=== PATIENT | male | born 1960 | race American Indian/Alaskan Native ===

== ENCOUNTER 2019-10-20 07:24 | Day surgery (SDC) | payer OTHER ==
[2019-10-20 08:03] VITALS: BP 163/94
[2019-10-20] MEDS ORDERED: LIDOCAINE (1%) 10 MG/1 ML VIAL 20 ML MDV ONE (08:27)
[2019-10-20] MEDS ORDERED: BUPIVACAINE/PF (0.5%) 5 MG/1 ML 30 ML VIAL INFILTRATI ONE ×2 (08:27→08:54)
[2019-10-20] MEDS ORDERED: LIDOCAINE (1%) 10 MG/1 ML VIAL 20 ML MDV INFILTRATI ONE (08:53)
--- NOTE | 2019-10-20 10:17 | Fluoroscopy Report ---
INTRAOPERATIVE FLUOROSCOPY: LEFT KNEE INDICATION: LT KNEE PAIN. TECHNIQUE: Intraoperative spot images were obtained during the procedure. FINDINGS: Limited spot fluoroscopy of the left knee was performed to guide a geniculate nerve block. Please see the procedure report for further details. Fluoroscopy Time: 16 seconds. Fluoroscopy Images: 6. Signer Name: Fabio Pittman MD Signed: 10/20/2019 10:13 AM Workstation Name: [id number]
--- NOTE | 2019-10-20 12:01 | Procedure Note ---
Date of procedure: 10/20/19 Pre-op diagnosis: Left knee pain Post-op diagnosis: same Procedure: Left Geniculate Nerve Block under C-arm fluroscopy procedure The patient taken to the Operating room where he was place on the table supine with padded triangular pad placed along the potileal fossa. The left knee prepped and draped in usual sterile fashion. 22-gauge spinal needle used to locate areas for injection, the medial and lateral supracondylar ridges, along with suprapatellar region as well as the medial border of the proximal tibia. These areas were anesthized using lidocaine 1% followed by placement of spinal needle near the medial, and lateral geniculate nerves. A mixture of marcaine and lidocaine injected into the deeper structures. There were no complications noted and he tolerated well. Anesthesia: local Surgeon: DAMION MARTINEZ Estimated blood loss: minimal Pathology: none Condition: stable Disposition: observation
== END 2019-10-20 09:12 | disposition home or self-care (01) ==
LOC: OR 07:24
PROVIDERS: ATTEND Orthopaedic Surgery
DX: M25.562 Pain in left knee (principal); G43.909 Migraine, unspecified, not intractable, without status migrainosus; E78.00 Pure hypercholesterolemia, unspecified; I10 Essential (primary) hypertension; J44.9 Chronic obstructive pulmonary disease, unspecified; G47.30 Sleep apnea, unspecified; K21.9 Gastro-esophageal reflux disease without esophagitis; Z85.46 Personal history of malignant neoplasm of prostate; Z85.89 Personal history of malignant neoplasm of other organs and systems; Z98.890 Other specified postprocedural states; Z79.899 Other long term (current) drug therapy; Z79.82 Long term (current) use of aspirin; Z87.891 Personal history of nicotine dependence; Z88.8 Allergy status to other drugs, medicaments and biological substances
CPT/HCPCS: 77002

== ENCOUNTER 2020-01-19 14:26 | Day surgery (SDC) | payer OTHER ==
--- NOTE | 2020-01-19 07:57 | Anesthesia Day of Surgery ---
Anesthesia Day of Surgery - Day of Surgery Patient Examined: Yes Patient H&P Reviewed: Yes Patient is NPO: Yes Beta Blockers: Yes (metoprolol this morning) Cardiac Clearance: Yes
--- NOTE | 2020-01-19 07:57 | Anesthesia Consultation ---
Anesthesia Consult and Med Hx Date of service: 01/19/20 - Airway Anesthetic Teeth Evaluation: Good (implants) ROM Head & Neck: Adequate Mental/Hyoid Distance: Adequate Mallampati Class: Class II Intubation Access Assessment: Probably Good - Pulmonary Exam CTA: Yes - Cardiac Exam Cardiac Exam: RRR - Pre-Operative Health Status ASA Pre-Surgery Classification: ASA3 Proposed Anesthetic Plan: General - Pulmonary Hx Smoking: Yes (quit 30yrs ago) Hx Respiratory Symptoms: No Hx Sleep Apnea: Yes (compliant with CPAP) - Cardiovascular System Hx Hypertension: Yes (took metoprolol this morning) Hx Heart Attack/AMI: No (recent CP w/ negative cardiac workup) Hx Percutaneous Transluminal Coronary Angioplasty (PTCA): No Hx Cardia Arrhythmia: No (hx abnormal EKG; follows with cardiology ) - Central Nervous System Hx Seizures: No (depakote for migraines; taken this morning) CVA: No Hx Back Pain: Yes - Gastrointestinal Hx Gastroesophageal Reflux Disease: Yes (well controlled) - Endocrine Hx Renal Disease: No Hx Liver Disease: No Hx Insulin Dependent Diabetes: No Hx Non-Insulin Dependent Diabetes: No Hx Thyroid Disease: No - Other Systems Hx Cancer: Yes (hx prostate ca) Hx Obesity: No - Additional Comments Anesthesia Medical History Comments: No hx anesthetic complications.
--- NOTE | 2020-01-19 13:23 | Procedure Note ---
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 A timeout procedure was done to identify the patient and the correct operative site next the leg was exsanguinated followed by inflation of the pneumatic tourniquet to 300 mmHg. Routine stab wounds were made both medial and lateral to the patella tendon next the arthroscope was inserted the knee joint was then insufflated with normal saline solution examination of the knee revealed these findings the patient was noted to have a grade II-III chondromalacia involving the medial femoral condyle and corresponding tibial plateau the medial meniscus was seen in its entirety there was some mild fraying noted in the posterior third the anterior cruciate ligament was seen and examined and was sensed intact next the lateral the arthroscope was placed into the lateral compartment here patient was noted to have again grade III chondromalacia a small flap tear noted in the lateral meniscus again the arthroscopic shaver was used to debride the degraded articular cartilage down to healthy-appearing cartilage tissue following this the wound was copiously irrigated the stab wounds were repaired 20 cc of half percent Marcaine was then injected into the knee followed by routine postop dressings patient tolerated the procedure there were no complications Anesthesia: CASSIE Surgeon: DAMION MARTINEZ Estimated blood loss: minimal Pathology: none Condition: stable Disposition: PACU
[2020-01-19 14:15] VITALS: BP 151/92
[~2020-01-19 14:26] MED LIST: ACETAMINOPHEN 500 MG TAB PO ONE; BUPIVACAINE-EPINEPHRINE/PF 0.25%-1:200,000 (30 ML) VIAL INFILTRATI ONE; BUPIVACAINE-EPINEPHRINE/PF 0.5%-1:200,000 (10 ML) VIAL IJ ONE; BUPIVACAINE-EPINEPHRINE/PF 0.5%-1:200,000 (30 ML) VIAL INFILTRATI ONE; EPINEPHrine 1 MG/10 ML SYRINGE IV ONE; EPINEPHrine 30 MG/30 ML INJ IV ONE; GLYCOPYRROLATE 0.4 MG/2 ML INJ ONE; HYDROmorphone 1 MG/1 ML INJ ONE; LACTATED RINGERS 1,000 ML IV SCH; LIDOCAINE MPF (2%) 20 MG/1 ML VIAL 5 ML ONE; MAGNESIUM OXIDE 400 MG TAB PO SCH; ONDANSETRON 4 MG/2 ML INJ ONE; PHENYLEPHRINE/NS 1,000 MCG/10 ML SYRINGE (OR USE) IV ONE; ROCURONIUM 50 MG/5 ML INJ IV ONE; SODIUM CHLORIDE 0.9% IRRIG SOLN 3000 ML IR ONE; ceFAZolin/STERILE WATER 2 GM/20 ML SYRINGE IV NR; ePHEDrine SULFATE 50 MG/1 ML INJ ONE; fentaNYL 100 MCG/2 ML INJ IV PRN; fentaNYL 100 MCG/2 ML INJ ONE; hydrALAZINE 20 MG/1 ML INJ IV ONE; hydrALAZINE 20 MG/1 ML INJ ONE; methylPREDNISolone ACETATE 40 MG/1 ML INJ ONE; propofoL 200 MG/20 ML VIAL IV ONE
--- NOTE | 2020-01-19 19:20 | Post Anesthesia Evaluation ---
- Post Anesthesia Evaluation Patient Participated: Yes Airway Patent: Yes Stable Respiratory Function: Yes Nausea/Vomiting: No Temp > 96.8F: Yes Pain Manageable: Yes Adequeate Hydration: Yes Anesthesia Complications: No
--- NOTE | 2020-02-06 16:30 | Event Note ---
Date: 02/06/20 (Post-op Tongue Numbness) Patient presented to [facility] today 02/06/20 with complaint of persistent tongue numbness since knee arthroscopy surgery under [facility] w/ LMA on 01/19/20. He reports that initially after surgery he felt numbness near the tip of the tongue bilaterally but this has since improved to involve the left side only. He has had no difficulty chewing, swallowing or speaking. On exam, the tongue appears intact, without visible abnormality. Movement in all directions is normal. No difficulty with LMA placement/removal or other airway trauma is documented in the anesthesia record. I discussed with the patient the process of LMA placement and removal and explain that his symptoms may be related to management of his airway intra-operatively. If this is the case, there is a chance that his symptoms may ultimately resolve without intervention over the next several weeks. However, I did recommend that he see a neurologist for further evaluation and recommendations. I offered to give him contact information for neurology services associated with [facility], however the patient states that he receives care through the [facility] and would likely not get authorization. He does have an appointment scheduled in March with neurology at the [facility] for an unrelated issue. I encouraged him to contact them and see if he may be seen sooner for his current complaint. The patient verbalized understanding. Anesthesia services will continue to follow up with him regarding this concern. He provided [phone] as best contact number. Tia Marquis MD Anesthesiologist
== END 2020-01-19 14:45 | disposition home or self-care (01) ==
LOC: OR 14:26
PROVIDERS: ATTEND Orthopaedic Surgery
DX: S83.282A Other tear of lateral meniscus, current injury, left knee, initial encounter (principal); M94.262 Chondromalacia, left knee; Z11.59 Encounter for screening for other viral diseases; G43.909 Migraine, unspecified, not intractable, without status migrainosus; E78.00 Pure hypercholesterolemia, unspecified; I10 Essential (primary) hypertension; I42.9 Cardiomyopathy, unspecified; J44.9 Chronic obstructive pulmonary disease, unspecified; G47.30 Sleep apnea, unspecified; K21.9 Gastro-esophageal reflux disease without esophagitis; Z85.46 Personal history of malignant neoplasm of prostate; Z98.890 Other specified postprocedural states; Z79.82 Long term (current) use of aspirin; Z79.899 Other long term (current) drug therapy; Z87.891 Personal history of nicotine dependence; Z88.8 Allergy status to other drugs, medicaments and biological substances; X58.XXXA Exposure to other specified factors, initial encounter; Y93.89 Activity, other specified; Y92.89 Other specified places as the place of occurrence of the external cause; Y99.8 Other external cause status
CPT/HCPCS: 29881; A4217; J0171; J0360; J0690; J1170; J2370; J2405; J2704; J3010; J7120; U0003; J1030